=== PATIENT | male | born 1975 | race African-American/Black ===

== ENCOUNTER 2020-03-08 15:52 | Emergency (ER) | payer MEDICAID ==
[~2020-03-08] VITALS: Ht 177.8 cm; Wt 82.0 kg
[2020-03-08] MEDS ORDERED: SODIUM CHLORIDE 0.9% 1,000 ML IV ONE (16:19)
[2020-03-08 16:41] LABS: BASOPHILS % 0.5 % (0.0-2.0); EOSINOPHILS % 0.6 % (0.0-5.0); HEMATOCRIT. 41.1 % (42.0-52.0); HEMOGLOBIN. 13.5 g/dL (14.0-18.0); LYMPHOCYTES % 14.2 % (20.0-50.0); MEAN CORPUSCULAR HEMOGLOBIN 27.1 pg (28.0-32.0); MEAN CORPUSCULAR VOLUME 82.6 fL (80.0-94.0); MEAN PLATELET VOLUME 7.2 fl (7.4-10.4); MONOCYTES % 9.8 % (2.0-8.0); NEUTROPHILS % 74.9 % (40.0-76.0); PLATELET 318 x1000/uL (130-400); RED BLOOD CELL COUNT 4.98 mill/uL (4.7-6.1); RED CELL DISTRIBUTION WIDTH 14.2 % (11.6-14.6)
[2020-03-08 16:49] LABS: CHLORIDE 103 mEq/L (98-107)
[2020-03-08] MEDS ORDERED: ONDANSETRON 4MG ODT PO NR (17:45)
[2020-03-08 18:27] VITALS: BP 120/78
== END 2020-03-08 18:28 | disposition home or self-care (01) ==
LOC: ER 15:52
DX: R53.1 Weakness (principal); R11.2 Nausea with vomiting, unspecified; F17.200 Nicotine dependence, unspecified, uncomplicated; F15.20 Other stimulant dependence, uncomplicated
CPT/HCPCS: 36415; 71045; 80053; 83880; 84484; 85025; 93005; 96360; 96361; 99285; J7030; Q0162

== ENCOUNTER 2020-04-02 15:33 | Emergency (ER) | payer MEDICAID ==
[~2020-04-02] VITALS: Ht 170.2 cm; Wt 92.0 kg
[2020-04-02 15:39] VITALS: BP 131/70
[2020-04-02] MEDS ORDERED: IBUPROFEN 600MG TABLET PO ONE (16:00)
[2020-04-02] MEDS ORDERED: CEFTRIAXONE SODIUM 250 MG/VIAL IM ONE (16:45)
[2020-04-02] MEDS ORDERED: AZITHROMYCIN 500 MG TABLET PO ONE (16:45)
[2020-04-02 17:37] LABS: CLARITY URINE CLEAR (CLEAR); COLOR URINE YELLOW (YELLOW); KETONES URINE NEGATIVE (NEGATIVE); LEUKOCYTE ESTERASE URINE 3+ (NEGATIVE); NITRITE URINE NEGATIVE (NEGATIVE); OCCULT BLOOD URINE NEGATIVE (NEGATIVE); PROTEIN URINE NEGATIVE (NEGATIVE); SPECIFIC GRAVITY URINE 1.019 (1.005-1.030)
[2020-04-06 08:10] LABS: NEISSERIA GONORRHOEAE NAA Positive (Negative)
== END 2020-04-02 17:33 | disposition home or self-care (01) ==
LOC: ER 15:33
DX: R30.0 Dysuria (principal); A64 Unspecified sexually transmitted disease; F15.10 Other stimulant abuse, uncomplicated
CPT/HCPCS: 81003; 87086; 87491; 87591; 96372; 99283; J0696